=== PATIENT | female | born 1955 | race Caucasian/White ===

== ENCOUNTER → 2016-10-07 | Outpatient (CLI) | payer MEDICAID ==
--- NOTE | 2016-10-07 08:58 | MA ---
Screening Digital Mammogram Clinical Indications: Routine screening. Mother with breast cancer at age 70. Technique: Standard cephalocaudal and mediolateral oblique projections were obtained. This examinat ion was processed by the [employer] computer aided detection system. Comparison: August 2015, August 2014, August 2013 and August 2012. Breast density: D; The breast tissue is extremely dense. This may lower the sensitivity of mammograph y. Findings: CAD was reviewed. No suspicious findings are identified. Impression: Negative mammogram. BI-RADS 1. Recommendation: Routine screening is recommended in one year, as long as physical examination is yelitza ign in this patient with extremely dense breast parenchyma. Considering the dense breast parenchyma a nd family history, this patient might benefit from screening whole breast ultrasound as a complement to annual screening mammography. [facility] will send a result letter to the patient. Negative mammography should not preclude additional workup of a clinically suspicious finding. The patient's information is entered into a reminder system with a target due date for her next mammo gram.
== END ==
LOC: BRMIMAGING 07:57
DX: Z12.31 Encounter for screening mammogram for malignant neoplasm of breast (principal); Z80.3 Family history of malignant neoplasm of breast
CPT/HCPCS: G0202

== ENCOUNTER → 2017-03-17 | Outpatient (CLI) | payer MEDICAID | LOC: BRMIMAGING 14:28 | PROVIDERS: ATTEND Registered Nurse | DX: M17.11 Unilateral primary osteoarthritis, right knee (principal) | CPT/HCPCS: 73562-PO ==